=== PATIENT | female | born 1990 | race Caucasian/White ===

== ENCOUNTER 2021-08-09 12:00 | Observation (INO) | payer OTHER ==
[~2021-08-09] VITALS: Ht 167.6 cm; Wt 62.6 kg
[2021-08-09] MEDS ORDERED: LACTATED RINGERS 500 ML IV SCH (13:00)
[2021-08-09] MEDS ORDERED: PRETAB PO (13:09)
[2021-08-09] MEDS ORDERED: SERT100T PO (13:09)
[2021-08-09 14:05] LABS: BASOPHILS % (AUTO) 0.2 % (0.0-2.0); EOSINOPHILS # (AUTO) 0.1 K/uL (0-0.4); EOSINOPHILS % (AUTO) 0.9 % (0.0-4.0); HEMATOCRIT 30.9 % (36-48); HEMOGLOBIN 10.2 g/dL (12.0-16.0); LYMPHOCYTES # (AUTO) 0.7 K/uL (2.5-16.5); LYMPHOCYTES % (AUTO) 10.7 % (20.5-51.1); MEAN CORPUSCULAR HEMOGLOBIN 24 pg (27-31); MEAN CORPUSCULAR HGB CONC 33 g/dL (33-37); MEAN CORPUSCULAR VOLUME 73.4 fL (80-94); MONOCYTES # (AUTO) 0.5 K/uL (0.8-1.0); MONOCYTES % (AUTO) 7.7 % (1.7-9.3); NEUTROPHILS # (AUTO) 5.1 K/uL (1.8-7.7); NEUTROPHILS % (AUTO) 80.5 % (42.2-75.2); PLATELET COUNT (AUTO) 143 K/uL (140-450); RED BLOOD CELL COUNT(AUTO) 4.21 MIL/uL (4.20-5.40); RED CELL DISTRIBUTION WIDTH 15.5 % (11.6-13.7); WHITE BLOOD COUNT (AUTO) 6.4 K/uL (4.8-10.8)
[2021-08-09 14:37] LABS: ALBUMIN 2.7 g/dL (3.4-5.0); ANION GAP 15.2 (8-16); CARBON DIOXIDE 23.7 mmol/L (21-32); CREATININE 0.6 mg/dL (0.6-1.3); POTASSIUM 3.9 mmol/L (3.5-5.1); TOTAL BILIRUBIN 0.5 mg/dL (0.0-1.0)
[2021-08-09 14:46] VITALS: BP 118/58
== END 2021-08-09 17:05 | disposition home or self-care (01) ==
LOC: MLD 12:00
PROVIDERS: ADMIT Obstetrics & Gynecology; ATTEND Obstetrics & Gynecology
DX: O26.893 Other specified pregnancy related conditions, third trimester (principal); R10.13 Epigastric pain; R10.11 Right upper quadrant pain; R10.12 Left upper quadrant pain; O99.283 Endocrine, nutritional and metabolic diseases complicating pregnancy, third trimester; E86.0 Dehydration; Z3A.28 28 weeks gestation of pregnancy; Z86.2 Personal history of diseases of the blood and blood-forming organs and certain disorders involving the immune mechanism; W18.39XA Other fall on same level, initial encounter; Y93.89 Activity, other specified; Y92.830 Public park as the place of occurrence of the external cause
CPT/HCPCS: 36415; 76805; 80053; 85025; 85384; 96360; 96361; G0378; Q0092; 59025; 81000

== ENCOUNTER 2021-10-12 20:03 | Inpatient (IN) | payer OTHER, SELFPAY ==
[~2021-10-12] VITALS: Ht 167.6 cm; Wt 66.2 kg
[~2021-10-12 20:03] MED LIST: PRETAB PO; SERT100T PO
[2021-10-12] MEDS ORDERED: LACTATED RINGERS 500 ML IV ONE (20:35)
[2021-10-12] MEDS ORDERED: MISOPROSTOL 200 MCG TAB VG SCH (20:35)
[2021-10-12] MEDS ORDERED: METHYLERGONOVINE 0.2 MG/ML AMP IM PRN (20:35)
[2021-10-12] MEDS ORDERED: CARBOPROST 250 MCG/ML AMP IM PRN (20:35)
[2021-10-12 21:00] LABS: BASOPHILS % (AUTO) 0.5 % (0.0-2.0); EOSINOPHILS # (AUTO) 0.1 K/uL (0-0.4); EOSINOPHILS % (AUTO) 0.8 % (0.0-4.0); HEMATOCRIT 32.1 % (36-48); HEMOGLOBIN 10.6 g/dL (12.0-16.0); LYMPHOCYTES # (AUTO) 1.1 K/uL (2.5-16.5); LYMPHOCYTES % (AUTO) 16.6 % (20.5-51.1); MEAN CORPUSCULAR HEMOGLOBIN 24 pg (27-31); MEAN CORPUSCULAR HGB CONC 33 g/dL (33-37); MEAN CORPUSCULAR VOLUME 71.8 fL (80-94); MONOCYTES # (AUTO) 0.6 K/uL (0.8-1.0); MONOCYTES % (AUTO) 8.5 % (1.7-9.3); NEUTROPHILS # (AUTO) 4.9 K/uL (1.8-7.7); NEUTROPHILS % (AUTO) 73.6 % (42.2-75.2); PLATELET COUNT (AUTO) 157 K/uL (140-450); RED BLOOD CELL COUNT(AUTO) 4.47 MIL/uL (4.20-5.40); WHITE BLOOD COUNT (AUTO) 6.6 K/uL (4.8-10.8)
[2021-10-12 21:24] LABS: PROTHROMBIN TIME 9.2 secs (10.8-13.4)
[2021-10-12 21:26] LABS: ALBUMIN 2.7 g/dL (3.4-5.0); ANION GAP 16.6 (8-16); CARBON DIOXIDE 23.8 mmol/L (21-32); CREATININE 0.7 mg/dL (0.6-1.3); POTASSIUM 3.4 mmol/L (3.5-5.1); TOTAL BILIRUBIN 0.5 mg/dL (0.0-1.0)
[2021-10-12] MEDS ORDERED: MISOPROSTOL 25 MCG TAB VG PRN (21:45)
[2021-10-12] MEDS: LACTATED RINGERS 1,000 ML IV SCH (22:00)
[2021-10-12] MEDS ORDERED: MISOPROSTOL 25 MCG TAB ONE (22:48)
[2021-10-12 23:28] VITALS: BP 125/77
[2021-10-12 23:49] LABS: APPEARANCE,URINE CLEAR (CLEAR); BILIRUBIN,URINE NEGATIVE (NEGATIVE); BLOOD, URINE NEGATIVE (NEGATIVE); COLOR,URINE YELLOW (YELLOW); LEUKOCYTE ESTERASE ,URINE NEGATIVE (NEGATIVE); NITRITE, URINE NEGATIVE (NEGATIVE); PH,URINE 6.5 (5.0-9.0); UGLUCOSE NEGATIVE (NEGATIVE)
[2021-10-13 00:03] LABS: BARBITURATE, URINE NEGATIVE ng/ml (NEG <=200); BENZODIAZEPINE, URINE NEGATIVE ng/mL (NEG <=200); CANNABINOID, URINE NEGATIVE ng/mL (NEG <=50); COCAINE, URINE NEGATIVE ng/mL (NEG <=300); OPIATE, URINE NEGATIVE ng/mL (NEG <=2000); PHENCYCLIDINE SCREEN,URINE NEGATIVE ng/mL (NEG <=25)
[2021-10-13] MEDS ORDERED: OXYTOCIN 20 UNITS in LACTATED RINGERS 1,000 ML IV SCH (04:55)
[2021-10-13] MEDS: LACTATED RINGERS 1,000 ML IV SCH (05:01)
[2021-10-13] MEDS ORDERED: OXYTOCIN 20 UNITS/LR PREMIX 1,000 ML IV ONE (05:35)
[2021-10-13] MEDS ORDERED: ONDANSETRON 4 MG/2 ML VIAL ONE ×2 (11:40→23:02)
[2021-10-13] MEDS ORDERED: MORPHINE SULFATE 10 MG/ML VIAL ONE ×2 (11:40→23:02)
[2021-10-13] MEDS ORDERED: diphenhydrAMINE 50 MG/ML VIAL ONE ×2 (11:50→23:03)
[2021-10-13 23:37] VITALS: BP 135/78
[2021-10-14] MEDS: LACTATED RINGERS 1,000 ML IV SCH (02:26)
--- NOTE | 2021-10-14 06:50 | NUR ---
PATIENT HAS BEEN SCREENED AND CATEGORIZED LOW NUTRITION RISK. PATIENT WILL BE SEEN WITHIN 7 DAYS OF ADMISSION. 10/20/21 DUDLEY WILBURN MS, RDN
[2021-10-14] MEDS ORDERED: NALBUPHINE 10 MG/ML AMP ONE (08:09)
[2021-10-14] MEDS ORDERED: NALBUPHINE 10 MG/ML AMP IVP PRN (08:10)
[2021-10-14] MEDS ORDERED: LIDOCAINE 1% 500 MG/50 ML VIAL ONE (08:24)
[2021-10-14] MEDS ORDERED: ROPIVACAINE 0.2%/NS PREMIX 200 ML EPI ONE (09:29)
[2021-10-14] MEDS ORDERED: SIMETHICONE 80 MG TAB.CHEW PO PRN (12:00)
[2021-10-14] MEDS ORDERED: MEASLES, MUMPS, AND RUBELLA 1 VIAL SQVAC ONE (12:00)
[2021-10-14] MEDS ORDERED: METHYLERGONOVINE 0.2 MG TAB PO PRN (12:00)
[2021-10-14] MEDS ORDERED: METHYLERGONOVINE 0.2 MG/ML AMP IM PRN (12:00)
[2021-10-14] MEDS ORDERED: BENZOCAINE/MENTHOL 20%-0.5% 60 GM CAN TP PRN (12:00)
[2021-10-14] MEDS ORDERED: OXYTOCIN 10 UNITS/ML VIAL IM PRN (12:00)
[2021-10-14] MEDS ORDERED: DOCUSATE SODIUM 100 MG GELCAP PO PRN (12:00)
[2021-10-14] MEDS ORDERED: bisacodyL 5 MG TABEC PO PRN (12:00)
[2021-10-14] MEDS ORDERED: IBUPROFEN 600 MG TAB PO PRN (12:00)
[2021-10-14] MEDS ORDERED: OXYTOCIN 20 UNITS/LR PREMIX 1,000 ML IV ONE (12:04)
[2021-10-14] MEDS: IBUPROFEN 800 MG TAB PO PRN (12:49)
[2021-10-14] MEDS: FERROUS SULFATE 325 MG TABEC PO SCH (16:56)
[2021-10-15] MEDS: IBUPROFEN 800 MG TAB PO PRN (00:13)
[2021-10-15 08:32] LABS: HEMATOCRIT 26.7 % (36-48); HEMOGLOBIN 8.9 g/dL (12.0-16.0)
[2021-10-15] MEDS: FERROUS SULFATE 325 MG TABEC PO SCH (17:03)
== END 2021-10-15 17:30 | disposition home or self-care (01) | DRG 560 ==
LOC: MLD 20:03 → MFCC 10-14 13:50
PROVIDERS: ADMIT Obstetrics & Gynecology; ATTEND Obstetrics & Gynecology
PROC: 10E0XZZ Delivery of Products of Conception, External Approach (ICD-10-PCS; principal; 2021-10-14)
PROC: 0KQM0ZZ Repair Perineum Muscle, Open Approach (ICD-10-PCS; 2021-10-14)
PROC: 0W8NXZZ Division of Female Perineum, External Approach (ICD-10-PCS; 2021-10-14)
PROC: 3E0DXGC Introduction of Other Therapeutic Substance into Mouth and Pharynx, External Approach (ICD-10-PCS; 2021-10-14)
PROC: 3E033VJ Introduction of Other Hormone into Peripheral Vein, Percutaneous Approach (ICD-10-PCS; 2021-10-14)
DX: O26.62 Liver and biliary tract disorders in childbirth (principal); Z37.0 Single live birth; K83.1 Obstruction of bile duct; O99.52 Diseases of the respiratory system complicating childbirth; J45.909 Unspecified asthma, uncomplicated; O70.1 Second degree perineal laceration during delivery; Z20.822 Contact with and (suspected) exposure to COVID-19; Z3A.37 37 weeks gestation of pregnancy
CPT/HCPCS: 36415; 59200; 59409; 76815; 80053; 80305; 81003; 85018; 85025; 85610; 85730; 86592; 86886; 86900; 86901; 87340; J1200; J2001; J2270; J2300; J2405; J2590; J2795; J7120; Q0092